=== PATIENT | female | born 1995 | race Caucasian/White ===

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

== ENCOUNTER 2020-08-30 17:38 | Emergency (ER) | payer OTHER ==
[~2020-08-30 17:38] MED LIST changes: +AMOXICILLIN500 MG PO; +BENTYL 10MG CAP10 MG PO; +BENTYL 20MG TAB20 MG PO; +CEFUROXIME500 MG PO; +FEOSOL325 MG PO; +IBUPROFEN600 MG PO; +MACROBID 100 M100 MG PO; +OMEPRAZOLE20 MG PO; +OMNICEF 300 MG300 MG PO; +ONDANSETRON ODT4 MG PO; +PHENERGAN 25 MG25 M1 PO; +PROTONIX40 M1 PO; +PROTONIX40 MG PO; +PYRIDIUM200 MG PO; +TYLENOL 325MG325 MG PO; +ZANTAC150 MG PO; +ZOFRAN ODT 4 MG4 MG PO; +ZOFRAN4 MG PO
[2020-11-29] MEDS ORDERED: FERRO-TIME325 MG PO (16:30)
[2020-11-29] MEDS ORDERED: BUPRENORPHN-NA1 EACH SL (16:30)
[2020-11-29] MEDS ORDERED: TYLENOL EXTRA500 MG PO (16:30)
[2020-11-29] MEDS ORDERED: DOCUSATE SODIU100 MG PO (16:30)
[2020-11-29] MEDS ORDERED: IBUPROFEN800 MG PO (16:30)
== END 2020-08-30 19:45 | disposition left against medical advice (07) ==
LOC: ER1 17:38
DX: Z53.21 Procedure and treatment not carried out due to patient leaving prior to being seen by health care provider (principal)

== ENCOUNTER 2020-08-31 18:43 | Outpatient (CLI) | payer OTHER ==
[2020-11-29] MEDS ORDERED: BUPRENORPHN-NA1 EACH SL (16:30)
[2020-11-29] MEDS ORDERED: IBUPROFEN800 MG PO (16:30)
[2020-11-29] MEDS ORDERED: FERRO-TIME325 MG PO (16:30)
[2020-11-29] MEDS ORDERED: TYLENOL EXTRA500 MG PO (16:30)
[2020-11-29] MEDS ORDERED: DOCUSATE SODIU100 MG PO (16:30)
== END 2020-08-31 22:51 | disposition home or self-care (01) ==
LOC: GENOP 18:43
PROVIDERS: Obstetrics & Gynecology
DX: O26.893 Other specified pregnancy related conditions, third trimester (principal); R10.9 Unspecified abdominal pain; Z3A.29 29 weeks gestation of pregnancy
CPT/HCPCS: 80307; 81001; 96360; 96361

== ENCOUNTER 2020-09-14 16:30 | Outpatient (CLI) | payer OTHER ==
[2020-11-29] MEDS ORDERED: TYLENOL EXTRA500 MG PO (16:30)
[2020-11-29] MEDS ORDERED: DOCUSATE SODIU100 MG PO (16:30)
[2020-11-29] MEDS ORDERED: IBUPROFEN800 MG PO (16:30)
[2020-11-29] MEDS ORDERED: BUPRENORPHN-NA1 EACH SL (16:30)
[2020-11-29] MEDS ORDERED: FERRO-TIME325 MG PO (16:30)
== END 2020-09-14 18:11 | disposition home or self-care (01) ==
LOC: GENOP 16:30
DX: O26.893 Other specified pregnancy related conditions, third trimester (principal); Z3A.30 30 weeks gestation of pregnancy
CPT/HCPCS: 81001; 82731; 83518; G0463

== ENCOUNTER 2020-10-09 22:15 | Emergency (ER) | payer OTHER ==
[2020-11-29] MEDS ORDERED: TYLENOL EXTRA500 MG PO (16:30)
[2020-11-29] MEDS ORDERED: FERRO-TIME325 MG PO (16:30)
[2020-11-29] MEDS ORDERED: DOCUSATE SODIU100 MG PO (16:30)
[2020-11-29] MEDS ORDERED: BUPRENORPHN-NA1 EACH SL (16:30)
[2020-11-29] MEDS ORDERED: IBUPROFEN800 MG PO (16:30)
== END 2020-10-10 00:20 | disposition left against medical advice (07) ==
LOC: ER1 22:15
DX: Z53.21 Procedure and treatment not carried out due to patient leaving prior to being seen by health care provider (principal)

== ENCOUNTER → 2020-10-27 | Outpatient (CLI) | payer OTHER ==
[~2020-10-27] MED LIST changes: +BUPRENORPHN-NA1 EACH SL; +DOCUSATE SODIU100 MG PO; +FERRO-TIME325 MG PO; +IBUPROFEN800 MG PO; +SUBOXONE 8 MG-1 EACH SL; +TYLENOL EXTRA500 MG PO
== END ==
LOC: GENOP 00:09
DX: O26.893 Other specified pregnancy related conditions, third trimester (principal); R10.9 Unspecified abdominal pain; Z3A.35 35 weeks gestation of pregnancy
CPT/HCPCS: G0463

== ENCOUNTER 2020-11-18 21:32 | Outpatient (CLI) | payer OTHER ==
[~2020-11-18 21:32] MED LIST changes: -BUPRENORPHN-NA1 EACH SL; -DOCUSATE SODIU100 MG PO; -FERRO-TIME325 MG PO; -IBUPROFEN800 MG PO; -SUBOXONE 8 MG-1 EACH SL; -TYLENOL EXTRA500 MG PO
[2020-11-29] MEDS ORDERED: DOCUSATE SODIU100 MG PO (16:30)
[2020-11-29] MEDS ORDERED: IBUPROFEN800 MG PO (16:30)
[2020-11-29] MEDS ORDERED: TYLENOL EXTRA500 MG PO (16:30)
[2020-11-29] MEDS ORDERED: FERRO-TIME325 MG PO (16:30)
[2020-11-29] MEDS ORDERED: BUPRENORPHN-NA1 EACH SL (16:30)
== END 2020-11-19 00:07 | disposition home or self-care (01) ==
LOC: GENOP 21:32
DX: O62.9 Abnormality of forces of labor, unspecified (principal); O42.92 Full-term premature rupture of membranes, unspecified as to length of time between rupture and onset of labor; Z3A.37 37 weeks gestation of pregnancy
CPT/HCPCS: 83518; G0463

== ENCOUNTER 2020-11-27 16:36 | Inpatient (IN) | payer OTHER ==
[2020-11-27 17:22] LABS: HEMOGLOBIN 10.1 gm/dl (12.3-15.3); RED BLOOD COUNT 3.85 M/UL (4.00-5.10); WHITE BLOOD COUNT 13.6 K/UL (4.5-11.0)
[2020-11-27] MEDS ORDERED: SUBOXONE 8 MG-1 EACH SL (19:22)
[2020-11-29 06:03] LABS: HEMOGLOBIN 6.9 gm/dl (12.3-15.3)
[2020-11-29] MEDS ORDERED: DOCUSATE SODIU100 MG PO (16:30)
[2020-11-29] MEDS ORDERED: IBUPROFEN800 MG PO (16:30)
[2020-11-29] MEDS ORDERED: FERRO-TIME325 MG PO (16:30)
[2020-11-29] MEDS ORDERED: BUPRENORPHN-NA1 EACH SL (16:30)
[2020-11-29] MEDS ORDERED: TYLENOL EXTRA500 MG PO (16:30)
== END 2020-11-30 11:00 | disposition home or self-care (01) | DRG 806 ==
LOC: GENOP 16:36 → OB 16:55
PROVIDERS: ADMIT Obstetrics & Gynecology
PROC: 10E0XZZ Delivery of Products of Conception, External Approach (ICD-10-PCS; principal; 2020-11-27)
PROC: 10907ZC Drainage of Amniotic Fluid, Therapeutic from Products of Conception, Via Natural or Artificial Opening (ICD-10-PCS; 2020-11-27)
PROC: 3E033VJ Introduction of Other Hormone into Peripheral Vein, Percutaneous Approach (ICD-10-PCS; 2020-11-27)
DX: O99.324 Drug use complicating childbirth (principal); F11.20 Opioid dependence, uncomplicated; Z37.0 Single live birth; D62 Acute posthemorrhagic anemia; O99.02 Anemia complicating childbirth; Z3A.39 39 weeks gestation of pregnancy
CPT/HCPCS: 36415; 51702; 81001; 82800; 85014; 85018; 85025; 90471; 90715; J2001; J2405; J2590; J2795; J7120; U0002

== ENCOUNTER 2021-02-13 14:17 | Emergency (ER) | payer OTHER ==
[~2021-02-13 14:17] MED LIST changes: +BUPRENORPHN-NA1 EACH SL; +DOCUSATE SODIU100 MG PO; +FERRO-TIME325 MG PO; +IBUPROFEN800 MG PO; +SUBOXONE 8 MG-1 EACH SL; +TYLENOL EXTRA500 MG PO
[2021-02-13 17:27] LABS: HEMOGLOBIN 9.9 gm/dl (12.3-15.3); RED BLOOD COUNT 4.05 M/UL (4.00-5.10)
[2021-02-13 17:46] LABS: BUN/CREATININE RATIO 8 (0-10)
== END 2021-02-13 21:00 | disposition home or self-care (01) ==
LOC: ER1 14:17
PROVIDERS: Physician Assistant Medical
DX: N83.201 Unspecified ovarian cyst, right side (principal); Z87.442 Personal history of urinary calculi; Z79.899 Other long term (current) drug therapy
CPT/HCPCS: 76830; 80053; 81001; 84703; 85025; 99284

== ENCOUNTER 2021-03-22 12:27 | Emergency (ER) | payer OTHER | END 2021-03-22 14:00 | disposition home or self-care (01) | LOC: ER1 12:27 | DX: J00 Acute nasopharyngitis [common cold] (principal); F17.290 Nicotine dependence, other tobacco product, uncomplicated; Z20.822 Contact with and (suspected) exposure to COVID-19; Z90.49 Acquired absence of other specified parts of digestive tract | CPT/HCPCS: 0240U; 71046; 99285 ==

== ENCOUNTER 2021-06-21 14:40 | Emergency (ER) | payer OTHER ==
[2021-06-21 15:15] LABS: HEMOGLOBIN 11.1 gm/dl (12.3-15.3); RED BLOOD COUNT 4.41 M/UL (4.00-5.10); WHITE BLOOD COUNT 7.6 K/UL (4.5-11.0)
[2021-06-21 15:41] LABS: BUN/CREATININE RATIO 13 (0-10)
== END 2021-06-21 18:00 | disposition left against medical advice (07) ==
LOC: ER1 14:40
DX: R07.89 Other chest pain (principal)
CPT/HCPCS: 71045; 80053; 82550; 82553; 83874; 84484; 84703; 85025; 85379; 93005; 96374; 99283; J1885

== ENCOUNTER 2021-09-19 11:53 | Emergency (ER) | payer OTHER | END 2021-09-19 12:43 | disposition left against medical advice (07) | LOC: ER1 11:53 | DX: Z53.21 Procedure and treatment not carried out due to patient leaving prior to being seen by health care provider (principal) ==

== ENCOUNTER 2021-10-08 12:46 | Emergency (ER) | payer OTHER ==
[2021-10-08 14:29] LABS: HEMOGLOBIN 11.3 gm/dl (12.3-15.3); RED BLOOD COUNT 4.39 M/UL (4.00-5.10); WHITE BLOOD COUNT 7.3 K/UL (4.5-11.0)
[2021-10-08 14:51] LABS: BUN/CREATININE RATIO 10 (0-10)
== END 2021-10-08 16:55 | disposition home or self-care (01) ==
LOC: ER1 12:46
PROVIDERS: Emergency Medicine
DX: N93.9 Abnormal uterine and vaginal bleeding, unspecified (principal)
CPT/HCPCS: 76830; 80053; 81001; 84702; 85025; 85610; 85730; 86900; 86901; 99284